=== PATIENT | male | born 1955 | race Caucasian/White ===

== ENCOUNTER 2016-09-27 02:06 | Emergency (ER) | payer BC ==
[~2016-09-27] VITALS: Ht 172.7 cm; Wt 74.0 kg
[2016-09-27 02:10] VITALS: Ht 172.7 cm; Wt 74.0 kg
[2016-09-27] MEDS ORDERED: ONDANSETRON 4 MG INJ IV STA (04:03)
[2016-09-27] MEDS ORDERED: morphine 4 MG/ML VIAL IV STA (04:03)
[2016-09-27] MEDS ORDERED: IOHEXOL 300MG/ML 150 ML BTL ONE (04:26)
[2016-09-27] MEDS ORDERED: SOD CHLORIDE 0.9% 100 ML ONE (04:26)
[2016-09-27 04:36] LABS: ADD SCAN DIFF NO
[2016-09-27 04:43] LABS: ADD UMIC NO; BASOPHIL # 0.1 10^3/ul (0.0-0.1); BASOPHILS % 1.5 % (0.0-2.0); EOSINOPHILS # 0.4 10^3/ul (0.0-0.5); EOSINOPHILS % 5.3 % (0.0-7.0); HEMATOCRIT 43.8 % (42.0-52.0); HEMOGLOBIN 14.2 g/dl (14.0-18.0); LYMPHOCYTES # 1.6 10^3/ul (0.8-2.9); LYMPHOCYTES % 23.7 % (15.0-51.0); MEAN CORPUSCULAR HGB CONC 32.4 g/dl (32.0-37.0); MEAN CORPUSCULAR VOLUME 89.4 fl (82.0-101.0); MEAN PLATELET VOLUME 9.8 fl (7.4-10.4); MONOCYTE # 0.5 10^3/ul (0.3-0.9); MONOCYTES % 7.4 % (0.0-11.0); NEUTROPHIL # 4.2 10^3/ul (1.6-7.5); NEUTROPHILS % 61.8 % (39.0-77.0); PLATELET COUNT 409 10^3/UL (140-415); RED CELL DISTRIBUTION WIDTH 12.2 % (11.5-14.5); URINE BILIRUBIN (Dip) NEGATIVE (NEGATIVE); URINE BLOOD (Dip) NEGATIVE (NEGATIVE); URINE COLOR LT. YELLOW (YELLOW); URINE KETONES (Dip) NEGATIVE (NEGATIVE); URINE LEUKOCYTE ESTERASE (Dip) NEGATIVE (NEGATIVE); URINE NITRITE (Dip) NEGATIVE (NEGATIVE); URINE TOTAL PROTEIN (Dip) NEGATIVE (NEGATIVE); URINE UROBILINOGEN (Dip) 0.2 E.U./dL (0.1-1.0); WHITE BLOOD COUNT 6.8 10^3/ul (4.8-10.8)
[2016-09-27 05:04] LABS: ALBUMIN 4.8 g/dl (3.3-4.9); ALBUMIN/GLOBULIN RATIO 1.45; BILIRUBIN,INDIRECT 0.4 mg/dl (0-1.1); BILIRUBIN,TOTAL 0.4 mg/dl (0.2-1.3); CALCIUM 10.1 mg/dl (8.4-10.2); CREATININE 1.11 mg/dl (0.61-1.24); POTASSIUM 4.5 mmol/L (3.5-5.1); TOTAL PROTEIN 8.1 g/dl (6.1-8.1)
[2016-09-27] MEDS ORDERED: METF500T4 PO (05:32)
--- NOTE | 2016-09-27 05:33 | ERD ---
ER Documentation Chief Complaint Date/Time DATE: 09/27/16 TIME: 05:31 Chief Complaint lower back pain off and on [id number]. worsened last few days. no trauma HPI 61-year-old male presents to emergency department for complaints of left lower back left flank left lower quadrant abdominal pain for 2 months, worse today. Patient described the pain as throbbing pain, 6/10 scale, is worse upon movement and touching the area. Patient denies any nausea or vomiting. Patient denies any diarrhea or constipation. Patient denies hematuria or dysuria. Patient denies any fever or chills. Patient did not take any medications of symptoms. Patient denies any trauma on affected area. Patient denies any numbness or tingling. ROS All systems reviewed and are negative except as per history of present illness. Medications Home Meds Active Scripts Cyclobenzaprine Hcl* (Cyclobenzaprine Hcl*) 10 Mg Tablet, 10 MG PO TID, #15 TAB Prov:MARILIA MAE [employer]IN[employer] EDUCATION WORKER COORDINATOR 09/27/16 Hydrocodone/Acetaminophen ([place] 5-325 Tablet) 1 Each Tablet, 1 TAB PO Q6H Y for SEVERE PAIN LEVEL 7-10, #20 TAB Prov:MARILIA MAE [employer] EDUCATION WORKER COORDINATOR 09/27/16 Ibuprofen* (Motrin*) 400 Mg Tab, 400 MG PO Q6H Y for PAIN AND OR ELEVATED TEMP, #30 TAB Prov:MARILIA MAE AB[employer]INAL EDUCATION WORKER COORDINATOR 09/27/16 Reported Medications Metformin* (Glucophage*) Unknown Strength Tab, PO BID, #20 TAB 09/27/16 Allergies Allergies: Coded Allergies: No Known Allergy (Unverified , 09/27/16) PMhx/Soc History of Surgery: Yes (surgey for sinusitis) Anesthesia Reaction: No Hx Neurological Disorder: No Hx Respiratory Disorders: No Hx Cardiac Disorders: Yes (HTN) Hx Psychiatric Problems: No Hx Miscellaneous Medical Probl: Yes (DM2) Hx Alcohol Use: Yes (occasionally) Hx Substance Use: No Hx Tobacco Use: No FmHx Family History: No coronary disease, No diabetes, No other Physical Exam Vitals Vital Signs Date Time Temp Pulse Resp B/P Pulse Ox O2 Delivery O2 Flow Rate FiO2 09/27/16 07:33 98.6 81 18 139/75 100 09/27/16 05:53 84 18 144/83 99 09/27/16 02:10 98.2 108 20 187/100 97 Physical Exam GENERAL: The patient is well developed and appropriate for usual state of health, in no apparent distress. CHEST: Clear to auscultation bilaterally. There are no rales, wheezes or rhonchi. HEART: Regular rate and rhythm. No murmurs, clicks, rubs or gallops. No S3 or S4. ABDOMEN: Soft, nontender and nondistended. Good bowel sounds. No rebound or guarding. No gross peritonitis. No gross organomegaly or masses. No Pulido sign or McBurney point tenderness. BACK: No midline or flank tenderness. Tenderness on palpation on the left flank left lower quadrant area. EXTREMITIES: Equal pulses bilaterally. There is no peripheral clubbing, cyanosis or edema. No focal swelling or erythema. Full range of motion. Grossly neurovascularly intact. NEURO: Alert and oriented. Cranial nerves 2-12 intact. Motor strength in all 4 extremities with 5/5 strength. Sensation grossly intact. Normal speech and gait. SKIN: There is no apparent rash or petechia. The skin is warm and dry. HEMATOLOGIC AND LYMPHATIC: There is no evidence of excessive bruising or lymphedema. No gross cervical, axillary, or inguinal lymphadenopathy. Result Diagram: 09/27/16 0415 09/27/16 0415 Results 24 hrs Laboratory Tests Test 09/27/16 04:15 White Blood Count 6.810^3/ul Red Blood Count 4.9010^6/ul Hemoglobin 14.2g/dl Hematocrit 43.8% Mean Corpuscular Volume 89.4fl Mean Corpuscular Hemoglobin 29.0pg Mean Corpuscular Hemoglobin Concent 32.4g/dl Red Cell Distribution Width 12.2% Platelet Count 93578^3/UL Mean Platelet Volume 9.8fl Neutrophils % 61.8% Lymphocytes % 23.7% Monocytes % 7.4% Eosinophils % 5.3% Basophils % 1.5% Nucleated Red Blood Cells % 0.0/100WBC Neutrophils # 4.210^3/ul Lymphocytes # 1.610^3/ul Monocytes # 0.510^3/ul Eosinophils # 0.410^3/ul Basophils # 0.110^3/ul Nucleated Red Blood Cells # 0.010^3/ul Urine Color LT. YELLOW Urine Clarity CLEAR Urine pH 6.0 Urine Specific [place] <=1.005 Urine Ketones NEGATIVE Urine Nitrite NEGATIVE Urine Bilirubin NEGATIVE Urine Urobilinogen 0.2 E.U./dL Urine Leukocyte Esterase NEGATIVE Urine Hemoglobin NEGATIVE Urine Glucose 0.1%% Urine Total Protein NEGATIVE Sodium Level 141mmol/L Potassium Level 4.5mmol/L Chloride Level 103mmol/L Carbon Dioxide Level 29mmol/L Anion Gap 14 Blood Urea Nitrogen 20mg/dl Creatinine 1.11mg/dl Glucose Level 216mg/dl Calcium Level 10.1mg/dl Total Bilirubin 0.4mg/dl Direct Bilirubin 0.00mg/dl Indirect Bilirubin 0.4mg/dl Aspartate Amino Transf (AST/SGOT) 42IU/L Alanine Aminotransferase (ALT/SGPT) 60IU/L Alkaline Phosphatase 126IU/L Total Protein 8.1g/dl Albumin 4.8g/dl Globulin 3.30g/dl Albumin/Globulin Ratio 1.45 Lipase 38U/L Current Medications Medications (Trade) Dose Ordered Sig/Taras Route PRN Reason Start Time Stop Time Status Last Admin Dose Admin Morphine Sulfate (morphine) 4 mg ONCE STAT IV 09/27/16 04:03 09/27/16 04:05 DC 09/27/16 04:25 Ondansetron HCl 4 mg 4 mg ONCE STAT IV 09/27/16 04:03 09/27/16 04:05 DC 09/27/16 04:25 Sodium Chloride (NS) 100 ml @ ud STK-MED ONCE .ROUTE 09/27/16 04:26 09/27/16 04:27 DC 09/27/16 04:26 Iohexol (Omnipaque 300mg/ ml) 150 ml STK-MED ONCE .ROUTE 09/27/16 04:26 09/27/16 04:27 DC 09/27/16 04:26 Patient was given medication for pain here in emergency department, after treatment, patient verbalized feeling much better. Patient's pain is improved.Patient was given Zofran here in the emergency department. After treatment, patient was able to tolerate po fluids here in the emergency department without any vomiting. There is no signs and symptoms of dehydration. AMENDMENT: 09/27/2016 6:28:13 AM Porfirio Dennis M.d Examination was performed with and without contrast. There is no radiopaque renal or ureteral calculus identified. PROCEDURE: CT Abdomen and pelvis with contrast. CLINICAL INDICATION: Abdominal pain. TECHNIQUE: CT scan of the abdomen and pelvis with contrast was performed on a multi-detector high-resolution CT scanner. The patient was scanned following the uncomplicated intravenous administration of 100 cc of Omnipaque 300. Coronal and sagittal reformatted images were obtained from the axial source images. Images were reviewed on a high-resolution PACS workstation. One or more of the following dose reduction techniques were used: - Automated exposure control. - Adjustment of the mA and/or kV according to patient size. - Use of iterative reconstruction technique. Exam CTD/vol = 8.06 mGy. Total exam DLP = 973.78 mGy-cm. COMPARISON: None. FINDINGS: Evaluation of the lung bases demonstrates minimal bibasilar atelectasis. Abdomen: The liver is normal in size. There is no focal mass or dilatation of the biliary tree. The gallbladder is not distended. Multiple gallstones are identified. The spleen is normal in size and contains a small calcification compatible with old granulomatous disease. The pancreas and bilateral adrenal glands are within normal limits. Bilateral kidneys are normal in size with symmetric enhancement. There is no focal mass, hydronephrosis or hydroureter. There is no retroperitoneal adenopathy. The abdominal aorta is of normal caliber with scattered atherosclerotic calcifications. There is no abnormal bowel wall thickening or distension. There is no bowel obstruction or free air. A normal appendix is identified. There is no diverticulosis or diverticulitis. There is no ascites. Pelvis: The bladder is unremarkable. The prostate is mildly enlarged. There is no significant pelvic adenopathy or free fluid. Evaluation of the osseous structures demonstrates no suspicious lytic or blastic lesion. IMPRESSION: Cholelithiasis. Vascular calcifications reflective of atherosclerosis. Mildly enlarged prostate. Otherwise no acute abnormality identified within the abdomen and pelvis. .Porfirio Dennis MD, MD Date Time Electronically viewed and signed by .Porfirio Dennis MD, on 09/27/2016 06:27 .T/ CC: MARILIA MAE AB[employer]INAL EDUCATION WORKER COORDINATOR Procedures/MDM Medical Decision Making: Patient's s/s consistent with back pain possible caused by musckuloskeletal pain. No diverticulitis, bowel obstruction, renal stones, obstructive neuropathy, aortic dissection. Pain controlled in ER. There is low suspicion for abdominal emergencies at this time. Patients abdominal exam is normal at this time. Patients radiology exam does not show any abdominal emergencies at this time. There is low suspicion for appendicitis, cholecystitis, abdominal aortic aneurysms or peritonitis at this time. There is low suspicion for sepsis. Patient appears well and is hemodynamically stable. Disposition: Home. Condition: Stable Prescription [place] ibuprofen Flexeril Instructions: Patient is advised to take medications as prescribed. Patient is advised to rest, increase fluid intake and do avoid heavy lifting. Patient is advised that if symptoms are worse, severe abdominal pain, uncontrolled vomiting , high fever, severe flank pain, worst signs and symptoms, to return to the emergency department immediately. Otherwise, patient can follow up with primary care doctor in 5-7 days. Departure Diagnosis: Primary Impression: Back pain Back pain location: low back pain Chronicity: acute Back pain laterality: left Sciatica presence: without sciatica Qualified Code: M54.5 - Acute left- sided low back pain without sciatica Condition: Stable MARILIA MAE NP Sep 27, 2016 05:33
[2016-09-27] MEDS ORDERED: HYDR-906 PO (05:51)
[2016-09-27] MEDS ORDERED: CYCL-319 PO (05:51)
[2016-09-27] MEDS ORDERED: IBUP400T22 PO (05:51)
--- NOTE | 2016-09-27 06:23 | RADRPT ---
AMENDMENT: 09/27/2016 6:28:13 AM Porfirio Dennis M.d Examination was performed with and without contrast. There is no radiopaque renal or ureteral calculus identified. PROCEDURE: CT Abdomen and pelvis with contrast. CLINICAL INDICATION: Abdominal pain. TECHNIQUE: CT scan of the abdomen and pelvis with contrast was performed on a multi-detector high -resolution CT scanner. The patient was scanned following the uncomplicated intravenous administrat ion of 100 cc of Omnipaque 300. Coronal and sagittal reformatted images were obtained from the axia l source images. Images were reviewed on a high-resolution PACS workstation. One or more of the following dose reduction techniques were used: - Automated exposure control. - Adjustment of the mA and/or kV according to patient size. - Use of iterative reconstruction technique. Exam CTD/vol = 8.06 mGy. Total exam DLP = 973.78 mGy-cm. COMPARISON: None. FINDINGS: Evaluation of the lung bases demonstrates minimal bibasilar atelectasis. Abdomen: The liver is normal in size. There is no focal mass or dilatation of the biliary tree. T he gallbladder is not distended. Multiple gallstones are identified. The spleen is normal in size an d contains a small calcification compatible with old granulomatous disease. The pancreas and bilate ral adrenal glands are within normal limits. Bilateral kidneys are normal in size with symmetric en hancement. There is no focal mass, hydronephrosis or hydroureter. There is no retroperitoneal manuel opathy. The abdominal aorta is of normal caliber with scattered atherosclerotic calcifications. There is no abnormal bowel wall thickening or distension. There is no bowel obstruction or free air . A normal appendix is identified. There is no diverticulosis or diverticulitis. There is no asci darrel. Pelvis: The bladder is unremarkable. The prostate is mildly enlarged. There is no significant pel lydia adenopathy or free fluid. Evaluation of the osseous structures demonstrates no suspicious lytic or blastic lesion. IMPRESSION: Cholelithiasis. Vascular calcifications reflective of atherosclerosis. Mildly enlarged prostate. Otherwise no acute abnormality identified within the abdomen and pelvis. .Porfirio Dennis MD, MD Date Time Electronically viewed and signed by .Porfirio Dennis MD, MD on 09/27/2016 06:27 .T/
[2016-09-27 07:33] VITALS: BP 139/75; PULSE 81; RESP 18; TEMP 98.6
== END 2016-09-27 07:35 | disposition home or self-care (01) ==
LOC: FTE 02:06
DX: M54.5 Low back pain (principal); I10 Essential (primary) hypertension; E11.9 Type 2 diabetes mellitus without complications; Z79.84 Long term (current) use of oral hypoglycemic drugs
CPT/HCPCS: 36415; 74178; 80053; 81003; 83690; 85025; 96374; 96375; J2270; J2405; Q9967; Z7502; Z7610